=== PATIENT | female | born 2000 | race Two or more races ===

== ENCOUNTER 2024-11-17 23:13 | Emergency (ER) | payer MEDICAID, OTHER ==
[~2024-11-17] VITALS: Ht 172.7 cm; Wt 94.6 kg
[2024-11-17 23:23] VITALS: BP 134/81; PULSE 82; RESP 16; O2SAT 97
[2024-11-18 02:08] LABS: Urine Bacteria FEW /hpf (None Seen); Urine Blood Negative /uL (Negative); Urine Clarity Turbid (Clear); Urine Color Colorless (Yellow); Urine Protein, UAD Negative (Negative); Urine Specific Gravity 1.007 (1.001-1.035); Urine Squamous Epithelial Cell MOD /hpf (<5); Urine Urobilinogen Normal (Negative); Urine WBC 5 /hpf (0 - 5)
--- NOTE | 2024-11-18 02:16 | ED.PDOC ---
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 PATIENT REPORTS THAT SHE CURRENTLY IS APPROXIMATELY 7 WEEKS , AND REPORTS THAT SHE HAS BEEN EXPERIENCING FOUL SMELLING THICK WHITE VAGINAL DISCHARGE X 1 WEEK. NOTES SHE HAS NOT YET FOLLOWED-UP WITH A PROVIDER WITH REGARDS TO CURRENT BUT DOES HAVE AN APPOINTMENT WITH HER PCP ON 12/02/[address] CASAREZ ON 12/01/24. STATES SHE DOES HAVE UNPROTECTED SEX WITH HER BOYFRIEND ONLY, DENYING ANY KNOWN STD HISTORY FOR HER OR HER BOYFRIEND. PATIENT ALSO REPORTS 6/10 SORE THROAT PAIN X 2 WEEKS. PATIENT PRESENTS TO ER AMBULATORY ON ARRIVAL, WITH STEADY GAIT, IN NO DISTRESS. DENIES FEVER, BODY ACHES, CHILLS, FATIGUE, N/V, NIGHT SWEATS, SHORTNESS OF BREATH, PALPITATIONS, CHEST PAIN, COUGH, ABDOMINAL/PELVIC PAIN, SKIN CHANGES, BACK/FLANK PAIN, VAGINAL BLEEDING/ FURTHER CHANGES IN URINATION OR ANY FURTHER SYMPTOMS/COMPLAINTS Chief Complaint: Sore Throat Time Seen by MD: 23:23 Primary Care Provider: MARTA Reviewed Notes: Nurses Notes, Medications, Allergies Allergies: Coded Allergies: NO KNOWN ALLERGIES (Unverified , 11/17/24) Home Meds Active Scripts Acetaminophen (Acetaminophen) 500 Mg Tab, 500 MG PO Q4HPRN, #30 TAB 0 Refills Prov:LARS RESENDEZ 11/18/24 Cephalexin Monohydrate (Cephalexin) 500 Mg Cap, 1 CAP PO QID for 7 Days, #28 CAP 0 Refills Prov:LARS RESENDEZ 11/18/24 Information Source: Patient Past Medical History PAST MEDICAL HISTORY: Denies Surgical History: Denies all surgeries [facility] 09-28-24 Family History Family History: Unknown Social History Smoker: Non-Smoker Alcohol: Denies ETOH Use Drugs: Denies Drug Use Lives In: Home Constitutional: denies: chills, diaphoresis, fatigue, fever, malaise, sweats, weakness, others EENTM: reports: others ( STATED IN HPI) Respiratory: denies: cough, hemoptysis, orthopnea, SOB at rest, shortness of breath, SOB with excertion, stridor, wheezing, others Cardiovascular: denies: chest pain, dizzy spells, diaphoresis, Dyspnea on exert ion, edema, irregular heart beat, left arm pain, lightheadedness, palpitations, PND, syncope, others Gastrointestinal: denies: abdomen distended, abdominal pain, blood streaked bowels, constipated, diarrhea, dysphagia, difficulty swallowing, hematemesis, melena, nausea, poor appetite, poor fluid intake, rectal bleeding, rectal pain, vomiting, others Genitourinary: reports: others ( STATED IN HPI) Neurological: denies: dizziness, fainting, headache, left sided numbness, left sided weakness, numbness, paresthesia, pre-existing deficit, right sided numbness, right sided weakness, seizure, speech problems, tingling, tremors, weakness, others Musculoskeletal: denies: back pain, gout, joint pain, joint swelling, muscle pain, muscle stiffness, neck pain, others Integumetry: denies: bruises, change in color, change in hair/nails, dryness, laceration, lesions, lumps, rash, wounds, others Allergic/Immunocompromised: denies: Difficulty Healing, Frequent Infections, Hives, Itching, others Hematologic/Lymphatic: denies: anemia, blood clots, easy bleeding, easy bruising, swollen glands, others Endocrine: denies: excessive hunger, excessive sweating, excessive thirst, excessive urination, flushing, intolerance to cold, intolerance to heat, unexplained weight gain, unexplained weight loss, others Psychiatric: denies: anxiety, bipolar disorder, depression, hopeless, panic disorder, schizophrenia, sleepless, suicidal, others Physical Exam General Appearance: No Apparent Distress, Obese HEENT: Normal ENT Inspection, PERRL/EOMI, Pharynx Normal, TMs Normal Neck: Full Range of Motion, Non-Tender, Normal Respiratory: Chest Non-Tender, Lungs Clear, No Accessory Muscle Use, No Respiratory Distress, Normal Breath Sounds Cardiovascular: No Murmur, No Gallop, Regular Rate/Rhythm Breast Exam: Deferred Gastrointestinal: No Organomegaly, Non Tender (NO TTP TO ABDOMEN OR TO PELVIC REGION NOTED), No Pulsatile Mass, Normal Bowel Sounds, Soft Genitalia: Deferred Pelvic: Other (MINIMAL CREAMY WHITE VAGINAL DISCHARGE NOTED. NO SKIN CHANGES NOTED. REMAINDER OF PELVIC EXAMINATION-UNREMARKABLE) Rectal: Deferred Extremities: Normal capillary refill, Normal range of motion Neurologic: Alert, No Motor Deficits, Normal Affect, Normal Mood, No Sensory Deficits Cerebellar Function: Normal Reflexes: Normal Skin: Dry, Normal Color, Warm Peripheral Pulses: 2+ Radial (R), 2+ Radial (L), 2+ Brachial (R), 2+ Brachial (L) Lymphatic: No Adenopathy Was a procedure done? 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) Vaginal Bleeding: - Complete, Ectopic , Hormonal, Placenta Previa X-Ray, Labs, Meds, VS Vital Signs Date Time Temp Pulse Resp B/P (MAP) Pulse Ox O2 Delivery O2 Flow Rate FiO2 11/17/24 23:23 98.2 82 16 134/81 (98) 97 Lab Test 11/18/24 02:45 11/18/24 01:35 11/17/24 23:27 Range/Units Vaginal WBC (Wet Prep) Rare Vaginal RBC (Wet Prep) None seen Vaginal Epithelial Cells (Wet Prep) Moderate Vaginal Bacteria (Wet Prep) Few Vaginal Trichomonas (Wet Prep) Not present Vaginal Yeast (Wet Prep) None seen Vaginal Clue Cells (Wet Prep) None seen White Blood Count 7.0 4.4-10.8 10^3/uL Red Blood Count 4.87 4.0-5.20 10^6/uL Hemoglobin 12.5 12.2-16.2 g/dL Hematocrit 38.3 36.0-46.0 % Mean Corpuscular Volume 78.7 L 80.0-100.0 fL Mean Corpuscular Hemoglobin 25.6 L 28.0-32.0 pg Mean Corpuscular Hemoglobin Concent 32.6 32.0-36.0 g/dL Red Cell Distribution Width 15.0 H 11.8-14.3 % Platelet Count 363 140-450 10^3/uL Mean Platelet Volume 8.3 6.9-10.8 fL Neutrophils (%) (Auto) 58.7 37.0-80.0 % Lymphocytes (%) (Auto) 30.7 10.0-50.0 % Monocytes (%) (Auto) 6.7 0.0-12.0 % Eosinophils (%) (Auto) 3.2 0.0-7.0 % Basophils (%) (Auto) 0.7 0.0-2.0 % Neutrophils # (Auto) 4.1 1.6-8.6 10 ^3/uL Lymphocytes # (Auto) 2.2 0.4-5.4 10 ^3/uL Monocytes # (Auto) 0.5 0-1.3 10 ^3/uL Eosinophils # (Auto) 0.2 0-0.8 10 ^3/uL Basophils # (Auto) 0.1 0-0.2 10 ^3/uL Nucleated Red Blood Cells 0.0 % Sodium Level 136 136-145 mmol/L Potassium Level 4.3 3.5-5.1 mmol/L Chloride Level 105 98-107 mmol/L Carbon Dioxide Level 24 20-31 mmol/L Anion Gap 7 5-15 Blood Urea Nitrogen 10 9-23 mg/dL Creatinine 0.75 0.550-1.02 mg/dL Glomerular Filtration Rate Calc 114 >90 mL/min BUN/Creatinine Ratio 13.3 10.0-20.0 Serum Glucose 89 74-106 mg/dL Calcium Level 10.7 H 8.7-10.4 mg/dL Beta HCG, Quantitative 527422.8 H 1.5-4.2 mIU/mL Rapid Plasma Reagin Pending HIV (1&2) Antibody Pending Urine Color Colorless Yellow Urine Clarity Turbid H Clear Urine pH 6.0 5.0-9.0 Urine Specific Martin 1.007 1.001-1.035 Urine Protein Negative Negative Urine Ketones Negative Negative Urine Blood Negative Negative /uL Urine Nitrite Negative Negative Urine Bilirubin Negative Negative Urine Urobilinogen Normal Negative mg/dL Urine Leukocyte Esterase 1+ Negative /uL Urine RBC 3 0 - 4 /hpf Urine WBC 5 0 - 5 /hpf Urine Squamous Epithelial Cells Mod <5 /hpf Urine Bacteria Few H None Seen /hpf Urine Glucose Normal Normal mg/dL Urine Opiates Screen Neg NEGATIVE Urine Fentanyl Screen Neg NEGATIVE Urine Barbiturates Screen Neg NEGATIVE Urine Phencyclidine Screen Neg NEGATIVE Urine Amphetamines Screen Neg NEGATIVE Urine Benzodiazepines Screen Neg NEGATIVE Urine Cocaine Screen Neg NEGATIVE Urine Cannabinoids Screen Neg NEGATIVE Chlamydia trachomatis (ARNULFO) Pending Neisseria gonorrhoeae (ARUNLFO) Pending Current Medications Medications (Trade) Dose Ordered Sig/Renny Route Start Time Stop Time Status Last Admin Ceftriaxone Sodium (Rocephin) 1,000 mg ONCE ONCE IM 11/18/24 02:30 11/18/24 02:32 DC 11/18/24 02:58 Azithromycin (Zithromax Tablet) 1,000 mg ONCE ONCE PO 11/18/24 02:30 11/18/24 02:32 DC 11/18/24 02:58 PATIENT: NISREEN ADAMECCT: [id number]: [id number] : 2000 LOC: ER ROOM / BED: / AGE / SEX: 23 / F ADM STATUS: REG ER SERVICE 0 ORDERING PHYSICIAN: LARS RESENDEZ PROCEDURE(s): OB4US - OB ULTRASOUND COMP LESS 14WKS REASON: PELVIC PAIN ORDER NUMBER(s): [id number], ACCESSION NUMBER(s): [id number] Examination: OB4US -TV CLINICAL INDICATION: PELVIC PAIN. COMPARISON: None. TECHNIQUE: Transvaginal First trimester OB ultrasound was performed. FINDING: Real time ultrasound examination of pelvis shows normal anteverted uterus with a single well defined intra-uterine gestational sac. The uterus measures 12.2 x 8.4 x 5.7 cm. Single embryo is seen in the gestational sac. Yolk sac is seen. cardiac activity is well appreciated. The various parameters are as follows: Gestational sac measures 2.74 cm, corresponding to 7 weeks 4 days. The CRL measures 1.00 cm, corresponding to 7 weeks 1 day. MONSTER - 07/04/2025. heart rate: 141 b/min. Average GA: 7 weeks 3 days. Internal os is closed. Cervical length is adequate. Bilateral ovaries are normal. The right ovary measures 3.4 x 2.5 x 3.3 cm, volume 15.2 mL. The left ovary measures 3.1 x 2.5 x 2.4 cm, volume 10.2 mL. There is a right ovarian anechoic cystic lesion measuring 2.1 x 1.8 x 2.1 cm. Peripheral increased vascularity is present. IMPRESSION: 1. Single live intra-uterine . The approximate gestational age is around 7 weeks 3 days. 2. There is a subchorionic bleed measuring 18 x 10 x 16 mm. Electronically Signed 11/18/2024 03:14 Abeba Martínez ATED BY: ASTRID COLE MD DICTATED DATE/TIME: 11/18/24313 SIGNED BY: ASTRID COLE MD SIGNED DATE/TIME: 01/16/25 0314 CC: CBC AND BMP REVIEWED WITHOUT ANY SIGNIFICANT ABNORMALITIES URINALYSIS REVIEWED-URINE LEUKOCYTE ESTERASE 1+, URINE BLOOD NEGATIVE, URINE NITRITES NEGATIVE WET MOUNT REVIEWED WITHOUT ANY SIGNIFICANT ABNORMALITIES BETA HCG REVIEWED RPR ORDERED HIV ANTIBODY TEST ORDERED CHLAMYDIA/GONORRHEA AMPLIFICATION TEST ORDERED OB ULTRASOUND REVIEWED ROCEPHIN 1 G IM ORDERED AZITHROMYCIN 1 G P.O. ORDERED SAFE SEX PRACTICES DISCUSSED ADVISED ON REST/NO STRENUOUS ACTIVITY ADVISED TO REFRAIN FROM SEXUAL INTERCOURSE UNTIL FOLLOWING UP WITH OBGYN IN 1-2 DAYS FOR FURTHER EVALUATION PATIENT PROVIDED INFORMATION WITH REGARDS TO THE LOCAL PUBLIC HEALTH DEPARTMENT AND ADVISED TO FOLLOW UP IN 1-2 DAYS FOR FURTHER STD TESTING, PATIENT WAS ALSO E DUCATED TO HAVE SEXUAL PARTNER F/U FOR STD TESTING ADVISED TO FOLLOW UP PCP AND OBGYN IN 1-2 DAYS PATIENT VERBALIZED UNDERSTANDING AND AGREEABLE WITH CURRENT PLAN OF CARE ADVISED TO RETURN TO ER IMMEDIATELY IF SYMPTOMS WORSEN Time of 1ST Reevaluation: 02:02 Reevaluation 1ST: N/A Patient Education/Counseling: Diagnosis, Treatment, Prognosis, Need For Follow Up Family Education/Counseling: No Family Present Departure 1 Departure Time of Disposition: 02:22 Impression: Primary Impression: First trimester Additional Impressions: STD exposure Subchorionic hemorrhage in first trimester UTI (urinary tract infection) Qualified Codes: N30.00 - Acute cystitis without hematuria Disposition: 01 HOME / SELF CARE / HOMELESS Condition: Stable e-Prescriptions Acetaminophen (Acetaminophen) 500 Mg Tab 500 MG PO Q4HPRN, #30 TAB 0 Refills Prov: LARS RESENDEZ 11/18/24 Cephalexin Monohydrate (Cephalexin) 500 Mg Cap 1 CAP PO QID for 7 Days, #28 CAP 0 Refills Prov: LARS RESENDEZ 11/18/24 Discharged With: Self Critical Care Note Critical Care Time?: No Stability Stability form required: No Heart Score Heart Score: Heart Score Response (Comments) Value History N/A 0 EKG N/A 0 Age N/A 0 Risk Factors N/A 0 Troponin N/A 0 Total 0 LARS RESENDEZ Nov 18, 2024 02:16
[2024-11-18 02:20] LABS: Chloride 105 mmol/L (98-107); Potassium 4.3 mmol/L (3.5-5.1)
[2024-11-18 02:21] LABS: Anion Gap 7 (5-15); Carbon Dioxide 24 mmol/L (20-31)
[2024-11-18 02:26] LABS: BUN/Creatinine Ratio 13.3 (10.0-20.0); Blood Urea Nitrogen 10 mg/dL (9-23); Glucose 89 mg/dL (74-106)
[2024-11-18] MEDS ORDERED: CEPH500C PO (02:32)
[2024-11-18] MEDS ORDERED: ACET500T58 PO (02:32)
[2024-11-18 02:51] LABS: Calcium 10.7 mg/dL (8.7-10.4); Sodium 136 mmol/L (136-145)
[2024-11-18 02:54] LABS: Cannabinoid Screen, Urine Neg (NEGATIVE)
[2024-11-18 02:56] LABS: Basophils # (auto) 0.1 10 ^3/uL (0-0.2); Basophils % (auto) 0.7 % (0.0-2.0); Eosinophils # (auto) 0.2 10 ^3/uL (0-0.8); Eosinophils % (auto) 3.2 % (0.0-7.0); Hematocrit 38.3 % (36.0-46.0); Hemoglobin 12.5 g/dL (12.2-16.2); Lymphocytes # (auto) 2.2 10 ^3/uL (0.4-5.4); Lymphocytes % (auto) 30.7 % (10.0-50.0); Mean Corpuscular Hemoglobin 25.6 pg (28.0-32.0); Mean Corpuscular Hgb Conc. 32.6 g/dL (32.0-36.0); Mean Corpuscular Volume 78.7 fL (80.0-100.0); Monocytes # (auto) 0.5 10 ^3/uL (0-1.3); Monocytes % (auto) 6.7 % (0.0-12.0); Neutrophils # (auto) 4.1 10 ^3/uL (1.6-8.6); Neutrophils % (auto) 58.7 % (37.0-80.0); Platelet Count (auto) 363 10^3/uL (140-450); Red Blood Cells 4.87 10^6/uL (4.0-5.20)
[2024-11-18 02:58] LABS: Amphetamine Screen, Urine Neg (NEGATIVE); Barbiturate Scree,Urine Neg (NEGATIVE); Benzodiazephine Screen, Urine Neg (NEGATIVE); Cocaine Screen, Urine Neg (NEGATIVE); Opiate Scree,Urine Neg (NEGATIVE); Phencyclidine Screen, Urine Neg (NEGATIVE)
[2024-11-18] MEDS: AZITHROMYCIN 250 MG TAB PO ONE (02:58)
[2024-11-18] MEDS: cefTRIAXone SOD 1,000 MG VL IM ONE (02:58)
--- NOTE | 2024-11-18 03:16 | DVH ---
Examination: OB4US -TV CLINICAL INDICATION: PELVIC PAIN. COMPARISON: None. TECHNIQUE: Transvaginal First trimester OB ultrasound was performed. FINDING: Real time ultrasound examination of pelvis shows normal anteverted uterus with a single well defined intra-uterine gestational sac. The uterus measures 12.2 x 8.4 x 5.7 cm. Single embryo is seen in th e gestational sac. Yolk sac is seen. cardiac activity is well appreciated. The various parameters are as follows: Gestational sac measures 2.74 cm, corresponding to 7 weeks 4 days. The CRL measures 1.00 cm, corresponding to 7 weeks 1 day. MONSTER - 07/04/2025. heart rate: 141 b/min. Average GA: 7 weeks 3 days. Internal os is closed. Cervical length is adequate. Bilateral ovaries are normal. The right ovary measures 3.4 x 2.5 x 3.3 cm, volume 15.2 mL. The left ovary measures 3.1 x 2.5 x 2.4 cm, volume 10.2 mL. There is a right ovarian anechoic cystic lesion m easuring 2.1 x 1.8 x 2.1 cm. Peripheral increased vascularity is present. IMPRESSION: 1. Single live intra-uterine . The approximate gestational age is around 7 weeks 3 days. 2. There is a subchorionic bleed measuring 18 x 10 x 16 mm. Electronically Signed 11/18/2024 03:14 Abeba Martínez
[2024-11-18 03:42] LABS: Vaginal Bacteria Few; Vaginal Clue Cells None Seen; Vaginal Epithelial Cells Moderate; Vaginal Trichomonas Not Present
[2024-11-19 08:06] LABS: RPR Non Reactive (Non Reactive)
[2024-11-19 23:06] LABS: Chlamydia Trachomatis, NAA Negative (Negative); Neisseria gonorrhoeae, NAA Negative (Negative)
== END 2024-11-18 04:08 | disposition home or self-care (01) ==
LOC: ER 23:13
DX: O20.8 Other hemorrhage in early pregnancy (principal); O26.891 Other specified pregnancy related conditions, first trimester; O23.41 Unspecified infection of urinary tract in pregnancy, first trimester; Z3A.01 Less than 8 weeks gestation of pregnancy; Z20.2 Contact with and (suspected) exposure to infections with a predominantly sexual mode of transmission
CPT/HCPCS: 36415; 76801; 80048; 80307; 81001; 84702; 85025; 86592; 86703; 87210; 87491; 87591; 96372; 99285; J0696

== ENCOUNTER 2025-05-16 10:49 | Observation (INO) | payer MEDICAID ==
[~2025-05-16] VITALS: Ht 172.7 cm; Wt 99.8 kg
[~2025-05-16 10:49] MED LIST: ACET500T58 PO; CEPH500C PO
[2025-05-16 11:58] LABS: Hematocrit 30.9 % (36.0-46.0); Hemoglobin 10.2 g/dL (12.2-16.2); Mean Corpuscular Hemoglobin 24.3 pg (28.0-32.0); Mean Corpuscular Volume 73.4 fL (80.0-100.0); Nucleated Red Blood Cells % 0.0 %
--- NOTE | 2025-05-16 12:02 | DVH ---
BIOPHYSICAL PROFILE HISTORY: PIH r/o pre eclampsia TECHNIQUE: Multiple transabdominal real-time grayscale sonographic images through the gravid uterus of the fetus with duplex Doppler color flow and M-mode spectral analysis FINDINGS: BIOPHYSICAL PROFILE: breathing score: 2 movement score: 2 tone score: 2 Quantitative PARI score: 2 (PARI: 10.3 Cm.) Total score: 8 The cervix visualized. Single live fetus in transverse maternal right presentation. heart rate 159 beats per minute. Posterior placenta without previa or abruption IMPRESSION: Biophysical profile score: 8
[2025-05-16 12:09] LABS: Urine Protein, UAD 1+ (Negative)
[2025-05-16 12:13] LABS: INR 0.97 (0.9-1.15); Partial Thromboplastin Time 34.0 SEC (24.5-34.5); Prothrombin Time 10.3 sec (9.3-11.8)
[2025-05-16 12:18] LABS: Protein, Urine 40.4 mg/dL (1-14)
[2025-05-16 12:21] LABS: Alanine Aminotransferase 15 U/L (7-40); Albumin 4.1 g/dL (3.2-4.8); Alkaline Phosphatase 115 U/L (46-116); Anion Gap 9 (5-15); Bilirubin, Total 0.4 mg/dL (0.2-1.0); Calcium 8.7 mg/dL (8.7-10.4); Carbon Dioxide 20 mmol/L (20-31); Chloride 106 mmol/L (98-107); Glucose 88 mg/dL (74-106); Potassium 3.8 mmol/L (3.5-5.1); Total Protein 6.4 g/dL (5.7-8.2); Uric Acid 3.7 mg/dL (3.1-7.8)
[2025-05-16 12:22] LABS: BUN/Creatinine Ratio 9.8 (10.0-20.0); Blood Urea Nitrogen < 5 mg/dL (9-23); Sodium 135 mmol/L (136-145)
[2025-05-16] MEDS: ACETAMINOPHEN 325 MG TAB PO ONE (12:32)
[2025-05-17] MEDS ORDERED: ZOFR4T PO ×3 (22:13)
[2025-05-17] MEDS ORDERED: FAMO20TA10 PO ×3 (22:13→22:16)
[2025-05-17] MEDS ORDERED: MET075VC VG ×2 (22:13)
== END 2025-05-16 13:17 | disposition home or self-care (01) ==
LOC: LDRP 10:49 → UNDOADMOB 10:49 → LDRP 11:03
PROVIDERS: ADMIT Obstetrics & Gynecology; ATTEND Obstetrics & Gynecology
DX: O26.893 Other specified pregnancy related conditions, third trimester (principal); R51.9 Headache, unspecified; H53.8 Other visual disturbances; R79.1 Abnormal coagulation profile; Z79.899 Other long term (current) drug therapy; Z3A.33 33 weeks gestation of pregnancy
CPT/HCPCS: 36415; 59025; 76819; 80053; 81001; 81002; 82570; 84156; 84550; 85025; 85610; 85730; 94760; G0378

== ENCOUNTER 2025-05-17 17:44 | Observation (INO) | payer MEDICAID ==
[~2025-05-17] VITALS: Ht 172.7 cm; Wt 103.4 kg
[2025-05-17] MEDS: cefTRIAXone 1GM/50ML D5W 50 ML IV ONE (19:56)
[2025-05-17] MEDS: ONDANSETRON HCL 4 MG/2 ML VIAL IV PRN (19:56)
[2025-05-17] MEDS: SODIUM CHLORIDE 0.9% 1,000 ML IV SCH (20:07)
--- NOTE | 2025-05-17 20:46 | DVHDS2 ---
Physician Discharge Progress N Final Diagnosis: N/V BV Operations or Procedures: Operations or Procedures S: 24yo IUP@33.1wks presents to OB triage with c/o N/V for the last 24 hours and hasnt been able to keep anything down, also has a headache. Pt reports having BV and UTI that she was taking flagyl for but she only took it orally for 3 days then she started vomiting. Denies LOF/VB/CARTWRIGHT/vision changes/RUQ pain. Endorses +FM. PNC with Dr. Will, uncomplicated. O: VSS NST reactive 1L NS IV bolus and 1L LR IV bolus given Rocephin 1g IVPB given for UTI Zofran and pepcid IVP given PreE labs done on 05/16/25, labs reviewed WNL Tylenol 1000mg PO given, headache resolved A: 24yo IUP@33.1wks N/V BV Anemia P: D/C home Rx sent for metrogel, zofran, pepcid Recommended pt take OTC iron by three arrows No sex for 7 days during treatment. FKC/PTL/PreE precautions reviewed. Dr. Will consulted, agrees with POC. Condition on Discharge: Stable Disposition: Home Discharge Instructions: Diet: Regular Activity: No Restrictions, As Tolerated Medications: see med list Follow Up Care: Specialist: f/u with Dr. Will as scheduled in office Discharge Statement: "Patient was advised to return to the ER or call 911 if any headaches, dizziness, shortness of breath, chest pain, abdominal pain, bleeding, fevers, or worsening of medical condition. Patient was counseled about treatment plan, medications, possible side effects, patientverbalized understanding. All questions were answered to the best of my ability. This discharge took greater then 30 minutes in planning, reviewing documentation, counseling the patient, and discussing with other team members." Visit Coding OBGYN Date of Service: May 17, 2025 Billing Provider: JUHI ELIZALDE CNM DIRECTOR MEDICAL SCIENCE Common Visit Codes: 78309-RIZJJTT OBS CARE (HIGH) DIRECTOR MEDICAL SCIENCE Procedure Codes: 42625-67- NON-STRESS TEST JUHI ELIZALDE CNM May 17, 2025 20:46
[2025-05-17] MEDS: FAMOTIDINE (10MG/ML) 2ML VL IV STA (21:00)
[2025-05-17] MEDS: ACETAMINOPHEN 500 MG TAB or CAP PO ONE (21:01)
[2025-05-17] MEDS: LACTATED RINGER'S 1,000 ML IV ONE (22:00)
[2025-05-17 22:01] VITALS: TEMP 99.1
[2025-05-17] MEDS ORDERED: FAMO20TA10 PO ×3 (22:13→22:16)
[2025-05-17] MEDS ORDERED: MET075VC VG ×2 (22:13)
[2025-05-17] MEDS ORDERED: ZOFR4T PO ×3 (22:13)
[2025-05-18] MEDS ORDERED: SODIUM CHLORIDE 0.9% 1,000 ML IV SCH (19:00)
== END 2025-05-17 23:19 | disposition home or self-care (01) ==
LOC: NUR 17:44 → LDRP 19:03
PROVIDERS: ADMIT Obstetrics & Gynecology; ATTEND Obstetrics & Gynecology
DX: O23.593 Infection of other part of genital tract in pregnancy, third trimester (principal); B96.89 Other specified bacterial agents as the cause of diseases classified elsewhere; N39.0 Urinary tract infection, site not specified; D64.9 Anemia, unspecified; Z3A.33 33 weeks gestation of pregnancy
CPT/HCPCS: 59025; 81002; 94762; 96361; 96374; G0378; J0696; J2405; J3490; J7030; 96360; 96375

== ENCOUNTER 2025-05-20 11:20 | Observation (INO) | payer MEDICAID ==
[~2025-05-20] VITALS: Ht 172.7 cm; Wt 86.6 kg
[~2025-05-20 11:20] MED LIST changes: +FAMO20TA10 PO; +MET075VC VG; +ZOFR4T PO
[2025-05-20] MEDS ORDERED: TERBUTALINE SULFATE 1 MG/ML 1ML VIAL SC ONE (12:30)
--- NOTE | 2025-05-21 08:07 | DVHDS2 ---
Physician Discharge Progress N Final Diagnosis: n,v,dehydration 33wks Operations or Procedures: Operations or Procedures nst reactive reviwed,sono Condition on Discharge: Good Disposition: Home Discharge Instructions: Diet: Regular Activity: Light activity Medications: na Follow Up Care: Specialist: 1w Discharge Statement: "Patient was advised to return to the ER or call 911 if any headaches, dizziness, shortness of breath, chest pain, abdominal pain, bleeding, fevers, or worsening of medical condition. Patient was counseled about treatment plan, medications, possible side effects, patientverbalized understanding. All questions were answered to the best of my ability. This discharge took greater then 30 minutes in planning, reviewing documentation , counseling the patient, and discussing with other team members." Visit Coding OBGYN Date of Service: May 20, 2025 Billing Provider: CANDACE CASAREZ DO BILINGUAL SPEECH THERAPIST Common Visit Codes: 85075-[id number] OBS CARE (HIGH) BILINGUAL SPEECH THERAPIST Procedure Codes: 43272-02- NON-STRESS TEST CANDACE CASAREZ DO May 21, 2025 08:07
== END 2025-05-20 13:15 | disposition home or self-care (01) ==
LOC: LDRP 11:20
PROVIDERS: ADMIT Obstetrics & Gynecology; ATTEND Obstetrics & Gynecology
DX: O21.2 Late vomiting of pregnancy (principal); O99.283 Endocrine, nutritional and metabolic diseases complicating pregnancy, third trimester; E86.0 Dehydration; Z3A.33 33 weeks gestation of pregnancy; Z79.899 Other long term (current) drug therapy; Z98.890 Other specified postprocedural states
CPT/HCPCS: 59025; 81002; 94760; 96360; 96361; G0378; J3105